=== PATIENT | female | born 1995 | race Caucasian/White ===

== ENCOUNTER 2022-12-23 19:55 | Emergency (ER) | payer OTHER ==
[2022-12-23 20:37] VITALS: BP 134/72; PULSE 83; RESP 18; TEMP 98.3; BMI 25.0
== END 2022-12-23 20:36 | disposition home or self-care (01) ==
LOC: FER 19:55
DX: S63.92XA Sprain of unspecified part of left wrist and hand, initial encounter (principal); M79.642 Pain in left hand; M79.645 Pain in left finger(s); M79.89 Other specified soft tissue disorders; Y04.0XXA Assault by unarmed brawl or fight, initial encounter; Y93.89 Activity, other specified; Y92.119 Unspecified place in children's home and orphanage as the place of occurrence of the external cause
CPT/HCPCS: 73130-TC-LT-FY; 99283-25